=== PATIENT | female | born 1950 | race Caucasian/White ===

== ENCOUNTER → 2018-06-17 | Outpatient (CLI) | payer MEDICARE ==
[~2018-06-17] MED LIST: ACET1TAB12 PO; DOCU-275 PO; LEVO500T2 PO; TRAM50TA2 PO
[2018-06-17 10:11] LABS: ALBUMIN 3.1 g/dL (3.5-5.0); BILIRUBIN,TOTAL 0.8 mg/dL (0.2-1.0); CREATININE 0.6 mg/dL (0.5-1.5); POTASSIUM 5.6 mmol/L (3.5-5.1); TOTAL PROTEIN, SERUM 7.1 g/dL (6.0-8.3)
== END | disposition home or self-care (01) ==
LOC: RAH 09:06
PROVIDERS: ATTEND Student in an Organized Health Care Education/Training Program
DX: K76.9 Liver disease, unspecified (principal); R14.0 Abdominal distension (gaseous); R18.8 Other ascites; D18.00 Hemangioma unspecified site
CPT/HCPCS: 36415; 76705; 80053; 83880

== ENCOUNTER → 2018-06-23 | Outpatient (CLI) | payer MEDICARE | END | disposition home or self-care (01) | LOC: RAH 13:27 | PROVIDERS: ATTEND Family Medicine | DX: Z12.31 Encounter for screening mammogram for malignant neoplasm of breast (principal) | CPT/HCPCS: 77067 ==

== ENCOUNTER 2018-09-02 13:59 | Observation (INO) | payer MEDICARE ==
[~2018-09-02] VITALS: Ht 177.8 cm; Wt 72.8 kg
[2018-09-02 14:40] LABS: BASOPHILS % (AUTO) 0.5 % (0.0-5.0); HEMATOCRIT 40.2 % (36-48); LYMPHOCYTES % (AUTO) 28.7 % (21.0-51.0); MEAN CORPUSCULAR HEMOGLOBIN 28.8 pg (27.0-33.0); MEAN CORPUSCULAR HGB CONC 33.4 g/dL (32.0-36.0); MEAN CORPUSCULAR VOLUME 86.4 fL (79-99); MONOCYTES % (AUTO) 16.1 % (3.0-13.0); NEUTROPHILS % (AUTO) 54.7 % (40.0-77.0); NUCLEATED RED BLOOD CELLS 0.3 % (0.0-0.19); PLATELET COUNT (AUTO) 146 K/uL (130-400); RED BLOOD CELL COUNT(AUTO) 4.65 MIL/uL (4.00-5.50); RED CELL DISTRIBUTION WIDTH 16.8 % (11.0-15.5); WHITE BLOOD COUNT (AUTO) 3.2 K/uL (4.8-10.8)
[2018-09-02 14:56] LABS: CREATININE 0.6 mg/dL (0.5-1.5); POTASSIUM 3.8 mmol/L (3.5-5.1)
[2018-09-02 15:00] LABS: ALBUMIN 3.6 g/dL (3.5-5.0); BILIRUBIN,TOTAL 0.9 mg/dL (0.2-1.0); TOTAL PROTEIN, SERUM 7.5 g/dL (6.0-8.3)
[2018-09-02 16:32] LABS: INR 1.27 (0.85-1.15); PARTIAL THROMBOPLASTIN TIME 32.8 SEC (26.3-35.5); PROTHROMBIN TIME 13.3 SEC (9.6-11.6)
[2018-09-02] MEDS: SODIUM CHLORIDE 0.9% 1000ML 1,000 ML IV SCH (16:36)
[2018-09-02] MEDS ORDERED: HYDRALAZINE HCL 20 MG/ML VIAL IV PRN (16:45)
[2018-09-02] MEDS ORDERED: ONDANSETRON HCL 4 MG/2 ML VIAL IV PRN (16:45)
[2018-09-02] MEDS ORDERED: ACETAMINOPHEN 325 MG TAB PO PRN ×2 (16:45)
[2018-09-02] MEDS: LEVOFLOXACIN 500 MG/D5W 100 ML 100 ML IV SCH (18:00)
[2018-09-02] MEDS: IPRATROPIUM/ALBUTEROL SULFATE 3 ML SOLUTION IH SCH ×2 (18:34→23:30)
[2018-09-02] MEDS ORDERED: LEVOFLOXACIN 500 MG/D5W 100 ML 100 ML ONE (19:18)
[2018-09-02] MEDS ORDERED: SODIUM CHLORIDE 0.9% 1000ML 1,000 ML IV ONE (19:18)
[2018-09-02] MEDS ORDERED: OSELTAMIVIR PHOSPHATE 75 MG CAP ONE (19:19)
[2018-09-02] MEDS ORDERED: ONDANSETRON HCL 4 MG/2 ML VIAL ONE (20:27)
[2018-09-02] MEDS ORDERED: LORAZEPAM 2 MG/ML 1 ML VIAL IM PRN (20:45)
[2018-09-02] MEDS: OSELTAMIVIR PHOSPHATE 75 MG CAP PO SCH (21:00)
[2018-09-02 22:15] VITALS: BP 158/70
[2018-09-02 23:42] VITALS: BP_SYST 142; BP_SYST 158; BP_DIAS 70; BP_DIAS 78
[2018-09-03 04:00] VITALS: BP 149/72
[2018-09-03] MEDS: SODIUM CHLORIDE 0.9% 1000ML 1,000 ML IV SCH ×2 (05:40→23:23)
[2018-09-03 05:46] LABS: MEAN CORPUSCULAR HEMOGLOBIN 28.1 pg (27.0-33.0); MEAN CORPUSCULAR HGB CONC 32.6 g/dL (32.0-36.0); MEAN CORPUSCULAR VOLUME 86.3 fL (79-99); NUCLEATED RED BLOOD CELLS 0.2 % (0.0-0.19); PLATELET COUNT (AUTO) 118 K/uL (130-400); RED BLOOD CELL COUNT(AUTO) 4.52 MIL/uL (4.00-5.50); RED CELL DISTRIBUTION WIDTH 16.7 % (11.0-15.5); WHITE BLOOD COUNT (AUTO) 3.4 K/uL (4.8-10.8)
[2018-09-03 05:58] LABS: ALBUMIN 3.4 g/dL (3.5-5.0); BILIRUBIN,TOTAL 0.7 mg/dL (0.2-1.0); CREATININE 0.7 mg/dL (0.5-1.5); LYMPHOCYTES % (MANUAL) 48 % (22-44); MAGNESIUM 1.6 mg/dL (1.80-2.40); MAN.DIFF COMMENT-IMPRESSION MANUAL DIFFERENTIAL; MONOCYTES % (MANUAL) 4 % (2-9); PLATELET MORPHOLOGY COMMENT SLIGHTLY DECREASED; POTASSIUM 3.8 mmol/L (3.5-5.1); SEGMENTED NEUTROPHILS % 48 % (40-70); TOTAL PROTEIN, SERUM 7.1 g/dL (6.0-8.3)
[2018-09-03] MEDS: IPRATROPIUM/ALBUTEROL SULFATE 3 ML SOLUTION IH SCH ×2 (06:10→10:59)
[2018-09-03 08:00] VITALS: BP 136/59
[2018-09-03] MEDS ORDERED: PANTOPRAZOLE 40 MG/VIAL IVP SCH (09:00)
[2018-09-03] MEDS: PANTOPRAZOLE SODIUM 40 MG TABLET.DR PO SCH (10:08)
[2018-09-03] MEDS: THIAMINE HCL 100 MG/ML 2ML VIAL IVP SCH (10:08)
[2018-09-03] MEDS: OSELTAMIVIR PHOSPHATE 75 MG CAP PO SCH ×2 (10:08→20:34)
[2018-09-03] MEDS: AZITHROMYCIN 500MG+NS 250ML 250 ML IV SCH (11:26)
[2018-09-03 12:21] VITALS: BP 132/64
--- NOTE | 2018-09-03 14:13 | NUR ---
Status Informed primary team that patient does not meet IN criteria. States to leave OBS and plan to dc in AM if Hgb is stable. CD
[2018-09-03] MEDS ORDERED: IPRATROPIUM/ALBUTEROL SULFATE 3 ML SOLUTION IH SCH (15:00)
[2018-09-03 16:00] VITALS: BP 140/76
[2018-09-03] MEDS: LEVOFLOXACIN 500 MG/D5W 100 ML 100 ML IV SCH (17:28)
[2018-09-03 19:40] VITALS: BP 154/82
[2018-09-04 00:45] VITALS: BP 159/78
[2018-09-04 04:40] VITALS: BP 146/73
[2018-09-04 05:28] LABS: HEMATOCRIT 36.2 % (36-48); MEAN CORPUSCULAR HEMOGLOBIN 28.3 pg (27.0-33.0); MEAN CORPUSCULAR HGB CONC 32.8 g/dL (32.0-36.0); MEAN CORPUSCULAR VOLUME 86.2 fL (79-99); NUCLEATED RED BLOOD CELLS 0.1 % (0.0-0.19); PLATELET COUNT (AUTO) 112 K/uL (130-400); RED CELL DISTRIBUTION WIDTH 16.8 % (11.0-15.5); WHITE BLOOD COUNT (AUTO) 2.8 K/uL (4.8-10.8)
[2018-09-04 05:49] LABS: ALBUMIN 3.1 g/dL (3.5-5.0); BILIRUBIN,TOTAL 0.6 mg/dL (0.2-1.0); CREATININE 0.5 mg/dL (0.5-1.5); POTASSIUM 3.6 mmol/L (3.5-5.1); TOTAL PROTEIN, SERUM 6.6 g/dL (6.0-8.3)
[2018-09-04 06:49] LABS: BAND NEUTROPHILS % (MANUAL) 8 % (0-2); EOSINOPHILS % (MANUAL) 1 % (1-6); LYMPHOCYTES % (MANUAL) 55 % (22-44); MAN.DIFF COMMENT-IMPRESSION MANUAL DIFFERENTIAL; MONOCYTES % (MANUAL) 3 % (2-9); PLATELET MORPHOLOGY COMMENT ADEQUATE; SEGMENTED NEUTROPHILS % 33 % (40-70)
[2018-09-04 08:00] VITALS: BP 130/74
[2018-09-04] MEDS: OSELTAMIVIR PHOSPHATE 75 MG CAP PO SCH (09:07)
[2018-09-04] MEDS: THIAMINE HCL 100 MG/ML 2ML VIAL IVP SCH (09:07)
[2018-09-04] MEDS: AZITHROMYCIN 500MG+NS 250ML 250 ML IV SCH (09:07)
[2018-09-04] MEDS: PANTOPRAZOLE SODIUM 40 MG TABLET.DR PO SCH (09:07)
[2018-09-04] MEDS ORDERED: BENZ-39 PO (11:04)
[2018-09-04] MEDS ORDERED: OSEL75 PO (11:04)
[2018-09-04] MEDS ORDERED: LEVO250S3 PO (11:04)
[2018-09-04] MEDS ORDERED: AZIT500T4 PO (11:04)
[2018-09-04 12:00] VITALS: BP 132/67
--- NOTE | 2018-09-04 12:30 | NUR ---
KELIN NOTE [facility] to home[facility] Addendum: 09/04/18 at 1232 by HAILEE ALCANTAR CM Amended: Links added.
--- NOTE | 2018-09-04 15:00 | NUR ---
PATIENT DISCHARGED HOME; PRESCRIPTIONS GIVEN
== END 2018-09-04 15:30 | disposition home or self-care (01) ==
LOC: EDH 13:59 → EDHIP 16:36 → 3BH 20:40
PROVIDERS: ADMIT Internal Medicine; ATTEND Internal Medicine
DX: J10.1 Influenza due to other identified influenza virus with other respiratory manifestations (principal); K92.1 Melena; R11.2 Nausea with vomiting, unspecified; F10.10 Alcohol abuse, uncomplicated; Z80.7 Family history of other malignant neoplasms of lymphoid, hematopoietic and related tissues; Z83.3 Family history of diabetes mellitus; Z87.891 Personal history of nicotine dependence; Z90.49 Acquired absence of other specified parts of digestive tract; Z93.3 Colostomy status; Z79.899 Other long term (current) drug therapy
CPT/HCPCS: 36415 ×3; 71046; 74176; 80053 ×3; 82948; 83690; 83735; 85025 ×2; 85027; 85610; 85730; 86850; 86900; 86901; 87804 ×2; 94640 ×4; 94664; 96361 ×2; 96365; 96366; 96367; 96375; 96376; 99284; A4600; G0378 ×47; J0456 ×2; J1956 ×2; J2405; J3411 ×2; J7030; C9113

== ENCOUNTER → 2018-09-30 | Outpatient (CLI) | payer MEDICARE ==
[~2018-09-30] VITALS: Ht 177.8 cm; Wt 75.0 kg
[~2018-09-30] MED LIST changes: -ACET1TAB12 PO; +AZIT500T4 PO; +BENZ-39 PO; +CALC-24 PO; +CALCIUM+VIT D PO; +CEFAZOLIN SODIUM 1 GM VIAL IVP SCH; -DOCU-275 PO; +LEVO250S3 PO; -LEVO500T2 PO; +MULTIVITAMIN PO; +OSEL75 PO; +PREVAGEN PO; +SODIUM CHLORIDE 0.9% 1000ML 1,000 ML IV SCH; -TRAM50TA2 PO
[2018-09-30 10:22] LABS: BASOPHILS % (AUTO) 0.6 % (0.0-5.0); EOSINOPHILS % (AUTO) 1.9 % (0.0-8.0); HEMATOCRIT 27.8 % (36-48); LYMPHOCYTES % (AUTO) 34.5 % (21.0-51.0); MEAN CORPUSCULAR HEMOGLOBIN 27.8 pg (27.0-33.0); MEAN CORPUSCULAR HGB CONC 32.8 g/dL (32.0-36.0); MEAN CORPUSCULAR VOLUME 84.7 fL (79-99); MONOCYTES % (AUTO) 11.9 % (3.0-13.0); NEUTROPHILS % (AUTO) 51.1 % (40.0-77.0); PLATELET COUNT (AUTO) 178 K/uL (130-400); RED BLOOD CELL COUNT(AUTO) 3.28 MIL/uL (4.00-5.50); RED CELL DISTRIBUTION WIDTH 15.4 % (11.0-15.5)
[2018-09-30 10:36] LABS: CREATININE 0.4 mg/dL (0.5-1.5); POTASSIUM 4.3 mmol/L (3.5-5.1)
[2018-09-30 10:43] LABS: INR 1.1 (0.85-1.15); PROTHROMBIN TIME 11.5 SEC (9.6-11.6)
[2018-09-30 10:45] VITALS: BP 153/77
--- NOTE | 2018-09-30 11:43 | NUR ---
HX MRSA PT HAS HX MRSA, STATED SHE WAS DIAGNOSED LAST YEAR. NOTIFIED NOREEN MCCARTHY, STATED RECORDS STATES MRSA FROM ABDOMINAL ABSCESS. ALSO NOTIFIED GILBERTO MUNIZ OR VARNISH BLENDER. ALSO CALLED DR. VIEYRA'S OFFICE TO NOTIFY, SPOKE TO ALFREDO GARDNER, STATED SHE WILL LET DR. VIEYRA KNOW.
--- NOTE | 2018-10-01 14:43 | NUR ---
ORDER ABNORMAL LABS REPORTED AND FAXED TO OFFICE. ORDERS TO DRAW TYPE AND SCREEN UPON ARRIVAL DOS.
== END | disposition home or self-care (01) ==
LOC: DAH 10:00 → EDSTATUS 10-11 09:00
PROVIDERS: ATTEND Student in an Organized Health Care Education/Training Program
DX: Z01.818 Encounter for other preprocedural examination (principal); Z93.3 Colostomy status; Z79.899 Other long term (current) drug therapy; I10 Essential (primary) hypertension; K21.9 Gastro-esophageal reflux disease without esophagitis; Z90.49 Acquired absence of other specified parts of digestive tract; Z98.890 Other specified postprocedural states; Z87.891 Personal history of nicotine dependence
CPT/HCPCS: 36415; 80048; 85025; 85610; 85730

== ENCOUNTER 2018-10-06 09:48 | Day surgery (SDC) | payer MEDICARE ==
[~2018-10-06] VITALS: Ht 177.8 cm; Wt 74.4 kg
[~2018-10-06 09:48] MED LIST changes: -AZIT500T4 PO; -BENZ-39 PO; -CALC-24 PO; -CALCIUM+VIT D PO; -CEFAZOLIN SODIUM 1 GM VIAL IVP SCH; -LEVO250S3 PO; -OSEL75 PO; -PREVAGEN PO; -SODIUM CHLORIDE 0.9% 1000ML 1,000 ML IV SCH
[2018-10-06 10:14] VITALS: BP 136/65
[2018-10-06] MEDS ORDERED: SODIUM CHLORIDE 0.9% 1000ML 1,000 ML IV ONE (10:31)
[2018-10-06] MEDS ORDERED: CALC-24 PO (10:38)
[2018-10-06] MEDS ORDERED: PREVAGEN PO (10:38)
[2018-10-06] MEDS ORDERED: PROPOFOL 10 MG/ML 20ML VIAL IV ONE ×3 (11:03→12:34)
[2018-10-06] MEDS ORDERED: GLYCOPYRROLATE 0.2 MG/ML 5 ML VIAL ONE (11:04)
[2018-10-06] MEDS ORDERED: LIDOCAINE HCL-MPF 2% 5ML VIAL ONE (11:04)
== END 2018-10-06 13:20 | disposition home or self-care (01) ==
LOC: DAH 09:48 → ENDO 09:48
PROVIDERS: ATTEND Student in an Organized Health Care Education/Training Program
DX: Z12.11 Encounter for screening for malignant neoplasm of colon (principal); Z79.899 Other long term (current) drug therapy; Z98.890 Other specified postprocedural states; Z93.3 Colostomy status; K63.5 Polyp of colon; D12.2 Benign neoplasm of ascending colon; K57.30 Diverticulosis of large intestine without perforation or abscess without bleeding
CPT/HCPCS: 45380; 45381; 88305; A4606; J2704 ×3; J3490 ×2; J7030

== ENCOUNTER → 2018-10-25 | Outpatient (CLI) | payer MEDICARE ==
[~2018-10-25] MED LIST changes: +CALC-24 PO; +PREVAGEN PO
== END | disposition home or self-care (01) ==
LOC: RAH 10:10
PROVIDERS: ATTEND Family Medicine
DX: I10 Essential (primary) hypertension (principal); R18.8 Other ascites; R60.0 Localized edema
CPT/HCPCS: 93306; 93970

== ENCOUNTER 2018-11-15 14:52 | Inpatient (IN) | payer MEDICARE | END 2018-11-19 16:20 | disposition home or self-care (01) | LOC: EDH 14:52 → 4BH 11-17 19:01 → EDHIP 16:58 → 2BH 22:30 | DX: D62 Acute posthemorrhagic anemia (principal); K92.2 Gastrointestinal hemorrhage, unspecified; E87.1 Hypo-osmolality and hyponatremia; D50.0 Iron deficiency anemia secondary to blood loss (chronic); K43.5 Parastomal hernia without obstruction or gangrene ==

== ENCOUNTER → 2018-12-20 | Outpatient (CLI) | payer MEDICARE ==
[~2018-12-20] VITALS: Ht 177.8 cm; Wt 76.9 kg
[~2018-12-20] MED LIST changes: -CALC-24 PO; +CEFAZOLIN SODIUM 1 GM VIAL IVP SCH; +FERR-82 PO; +FERR324T4 PO; +FOLIC ACID; -MULTIVITAMIN PO; +PANT40TA PO; -PREVAGEN PO
[2018-12-20 09:00] VITALS: BP 167/73
[2018-12-20 09:02] LABS: BASOPHILS % (AUTO) 1.2 % (0.0-5.0); EOSINOPHILS % (AUTO) 2.5 % (0.0-8.0); HEMATOCRIT 33.2 % (36-48); LYMPHOCYTES % (AUTO) 39.2 % (21.0-51.0); MEAN CORPUSCULAR HEMOGLOBIN 24.6 pg (27.0-33.0); MEAN CORPUSCULAR HGB CONC 31.2 g/dL (32.0-36.0); MEAN CORPUSCULAR VOLUME 78.7 fL (79-99); MONOCYTES % (AUTO) 14.5 % (3.0-13.0); NEUTROPHILS % (AUTO) 42.6 % (40.0-77.0); PLATELET COUNT (AUTO) 180 K/uL (130-400); RED BLOOD CELL COUNT(AUTO) 4.22 MIL/uL (4.00-5.50); RED CELL DISTRIBUTION WIDTH 31.9 % (11.0-15.5); WHITE BLOOD COUNT (AUTO) 3.4 K/uL (4.8-10.8)
[2018-12-20 09:10] LABS: CREATININE 0.5 mg/dL (0.5-1.5); POTASSIUM 4.2 mmol/L (3.5-5.1)
== END | disposition home or self-care (01) ==
LOC: DAH 12-20 10:00 → EDSTATUS 08:00 → DAH 10:00
PROVIDERS: ATTEND Student in an Organized Health Care Education/Training Program
DX: Z01.818 Encounter for other preprocedural examination (principal); K57.20 Diverticulitis of large intestine with perforation and abscess without bleeding; K43.5 Parastomal hernia without obstruction or gangrene; Z93.3 Colostomy status
CPT/HCPCS: 36415; 80048; 85025

== ENCOUNTER 2019-02-04 09:20 | Day surgery (SDC) | payer MEDICARE ==
[~2019-02-04] VITALS: Ht 177.8 cm; Wt 75.7 kg
[~2019-02-04 09:20] MED LIST changes: -CEFAZOLIN SODIUM 1 GM VIAL IVP SCH; -FERR324T4 PO; -FOLIC ACID; -PANT40TA PO
[2019-02-04 13:00] VITALS: BP 154/75
[2019-02-04] MEDS ORDERED: FOLIC ACID (13:08)
[2019-02-04 14:26] VITALS: BP 138/70
[2019-02-04 14:31] VITALS: BP 143/70
[2019-02-04 14:36] VITALS: BP 153/76
[2019-02-04 14:41] VITALS: BP 155/72
[2019-02-04 14:46] VITALS: BP 156/75
== END 2019-02-04 15:05 | disposition home or self-care (01) ==
LOC: ENDO 09:20 → DAH 09:20 → ENDO 15:05
PROVIDERS: ATTEND Internal Medicine
DX: R93.5 Abnormal findings on diagnostic imaging of other abdominal regions, including retroperitoneum (principal); K86.9 Disease of pancreas, unspecified; K31.89 Other diseases of stomach and duodenum; Z98.890 Other specified postprocedural states; Z79.899 Other long term (current) drug therapy; K74.60 Unspecified cirrhosis of liver; K44.9 Diaphragmatic hernia without obstruction or gangrene
CPT/HCPCS: 43238; 88173; A4215 ×2; A4606; 43232

== ENCOUNTER 2019-07-15 07:50 | Inpatient (IN) | payer MEDICARE ==
[~2019-07-15] VITALS: Ht 177.8 cm; Wt 75.8 kg
[~2019-07-15 07:50] MED LIST changes: -FERR-82 PO; +FOLIC ACID
[2019-07-15] MEDS ORDERED: SODIUM CHLORIDE 0.9% 1000ML 1,000 ML IV ONE (08:09)
[2019-07-15] MEDS ORDERED: ACETAMINOPHEN 325 MG TAB ONE (08:09)
[2019-07-15 08:16] LABS: BASOPHILS % (AUTO) 0.3 % (0.0-5.0); EOSINOPHILS % (AUTO) 0.2 % (0.0-8.0); LYMPHOCYTES % (AUTO) 3.8 % (21.0-51.0); MEAN CORPUSCULAR HEMOGLOBIN 19.2 pg (27.0-33.0); MEAN CORPUSCULAR HGB CONC 30.1 g/dL (32.0-36.0); MEAN CORPUSCULAR VOLUME 63.7 fL (79-99); MONOCYTES % (AUTO) 4.7 % (3.0-13.0); NUCLEATED RED BLOOD CELLS 0.1 % (0.0-0.19); PLATELET COUNT (AUTO) 211 K/uL (130-400); RED BLOOD CELL COUNT(AUTO) 3.92 MIL/uL (4.00-5.50); RED CELL DISTRIBUTION WIDTH 20.2 % (11.0-15.5); WHITE BLOOD COUNT (AUTO) 14.8 K/uL (4.8-10.8)
[2019-07-15 08:22] LABS: CREATININE 0.6 mg/dL (0.5-1.5); POTASSIUM 3.6 mmol/L (3.5-5.1)
[2019-07-15 08:26] LABS: ALBUMIN 3.2 g/dL (3.5-5.0); BILIRUBIN,TOTAL 1.4 mg/dL (0.2-1.0); TOTAL PROTEIN, SERUM 6.9 g/dL (6.0-8.3)
[2019-07-15 08:29] LABS: APPEARANCE,URINE Clear (CLEAR); BILIRUBIN,URINE Negative (NEGATIVE); COLOR,URINE Dark Yellow (YELLOW); GLUCOSE, URINE (UA) Negative (NEGATIVE); INR 1.29 (0.85-1.15); KETONES,URINE 40 mg/dL (NEGATIVE); LEUKOCYTE ESTERASE ,URINE Trace (NEGATIVE); NITRATE,URINE Positive (NEGATIVE); OCCULT BLOOD,URINE Negative (NEGATIVE); PARTIAL THROMBOPLASTIN TIME 26.6 SEC (26.3-35.5); PH,URINE 6.5 (5.0-8.0); PROTEIN,URINE Negative (NEGATIVE); PROTHROMBIN TIME 13.4 SEC (9.6-11.6)
[2019-07-15 08:46] LABS: BACTERIA,URINE Few /HPF (None Seen); MUCUS,URINE Rare LPF (None Seen); RBC,URINE 0-1 /HPF (0-1); SQUAMOUS EPITHELIAL CELL,UR Rare /HPF (0-2)
[2019-07-15 08:49] LABS: CREATINE KINASE, TOTAL 64 U/L (21-232); MYOGLOBIN 43 ng/mL (10-92); TROPONIN I < 0.04 ng/mL (0.00-0.06)
[2019-07-15] MEDS ORDERED: CEFTRIAXONE SODIUM 2 GM VIAL ONE (08:55)
[2019-07-15] MEDS ORDERED: ONDANSETRON HCL 4 MG/2 ML VIAL ONE (08:55)
[2019-07-15] MEDS ORDERED: SODIUM CHLORIDE 0.9% 100 ML IV ONE (08:58)
[2019-07-15] MEDS ORDERED: MORPHINE SULFATE 2 MG/ML 1ML SYG IV PRN (11:15)
[2019-07-15] MEDS ORDERED: ONDANSETRON HCL 4 MG/2 ML VIAL IV PRN (11:15)
[2019-07-15] MEDS ORDERED: ACETAMINOPHEN 325 MG TAB PO PRN ×2 (11:15)
[2019-07-15] MEDS: CEFTRIAXONE SODIUM 1 GM IV SCH (11:15)
[2019-07-15 14:36] VITALS: BP 150/64
[2019-07-15 16:00] VITALS: BP 135/58
[2019-07-15] MEDS: SODIUM CHLORIDE 0.9% 1000ML 1,000 ML IV SCH (16:55)
[2019-07-15 19:30] VITALS: BP 136/67
[2019-07-15] MEDS ORDERED: IRON-23 PO (19:32)
[2019-07-15] MEDS ORDERED: THIA100T75 PO (19:32)
[2019-07-15] MEDS ORDERED: NITR100C PO (19:32)
[2019-07-15] MEDS ORDERED: PUMP300C PO (19:32)
[2019-07-15] MEDS ORDERED: FOLI0.8T PO (19:32)
[2019-07-15] MEDS ORDERED: POTASSIUM CHLORIDE 20MEQ/100ML 100 ML IV PRN (19:45)
[2019-07-15] MEDS ORDERED: LIDOCAINE HCL-MPF 1% 2ML VIAL IV PRN (19:45)
[2019-07-15] MEDS ORDERED: POTASSIUM CHLORIDE 10% ELIXIR 20 MEQ/15 ML UDCUP PO PRN (19:45)
[2019-07-15] MEDS ORDERED: POTASSIUM CHLORIDE 20 MEQ ERTAB PO ONE (19:54)
[2019-07-15] MEDS: FAMOTIDINE 20MG TAB 20 MG TAB PO SCH (20:17)
--- NOTE | 2019-07-15 23:08 | NUR ---
colostomy colostomy stoma looked dry and bloody. irrigated it with sterile water, cleaned it, and changed the bag. Stoma now pink, smooth, with no drainage.
[2019-07-15 23:30] VITALS: BP 145/74
[2019-07-16] VITALS (7 sets, daily range): BP systolic 127–154; BP diastolic 63–77
[2019-07-16 04:49] LABS: CREATININE 0.5 mg/dL (0.5-1.5); POTASSIUM 3.8 mmol/L (3.5-5.1)
[2019-07-16 04:55] LABS: BASOPHILS % (AUTO) 0.3 % (0.0-5.0); EOSINOPHILS % (AUTO) 3.7 % (0.0-8.0); HEMATOCRIT 23.3 % (36-48); LYMPHOCYTES % (AUTO) 19.5 % (21.0-51.0); MEAN CORPUSCULAR HEMOGLOBIN 19.5 pg (27.0-33.0); MEAN CORPUSCULAR HGB CONC 29.9 g/dL (32.0-36.0); MONOCYTES % (AUTO) 8.3 % (3.0-13.0); NEUTROPHILS % (AUTO) 68.2 % (40.0-77.0); PLATELET COUNT (AUTO) 174 K/uL (130-400); RED BLOOD CELL COUNT(AUTO) 3.58 MIL/uL (4.00-5.50); WHITE BLOOD COUNT (AUTO) 6.4 K/uL (4.8-10.8)
--- NOTE | 2019-07-16 06:32 | NUR ---
spoke with Hospitalist Amada Liz about patient's hemoglobin of 7.0. she ordered type and screen and hemoglobin and hematocrit at 08:00 and report results to her or doctor.
[2019-07-16] MEDS: SODIUM CHLORIDE 0.9% 1000ML 1,000 ML IV SCH ×3 (06:48→16:53)
[2019-07-16 08:13] LABS: HEMATOCRIT 24.6 % (36-48)
[2019-07-16] MEDS: ENOXAPARIN SODIUM 30 MG/0.3 ML SQ SCH (08:37)
[2019-07-16] MEDS: CEFTRIAXONE SODIUM 1 GM IV SCH (08:37)
[2019-07-16] MEDS: FAMOTIDINE 20MG TAB 20 MG TAB PO SCH ×2 (08:38→20:30)
[2019-07-16 08:39] LABS: ALBUMIN 2.9 g/dL (3.5-5.0); BILIRUBIN,DIRECT 0.4 mg/dL (0.0-0.3); BILIRUBIN,TOTAL 0.9 mg/dL (0.2-1.0); TOTAL PROTEIN, SERUM 6.6 g/dL (6.0-8.3)
[2019-07-16 09:08] LABS: % IRON SATURATION 2.9 % (22-44)
--- NOTE | 2019-07-16 17:21 | NUR ---
cm note met with patient and states resides at home with spouse independent with adls and self care. pt drives. dc plan is back to home. no dc needs. Addendum: 07/16/19 at 1723 by NATALEE ROBERTSON CM Amended: Links added.
--- NOTE | 2019-07-17 02:56 | NUR ---
NURSING NOTE report given to pccu nurse
[2019-07-17] MEDS: SODIUM CHLORIDE 0.9% 1000ML 1,000 ML IV SCH ×3 (03:13→22:12)
[2019-07-17 03:54] VITALS: BP 149/70
[2019-07-17 05:55] LABS: BASOPHILS % (AUTO) 0.6 % (0.0-5.0); EOSINOPHILS % (AUTO) 4.3 % (0.0-8.0); HEMATOCRIT 25.8 % (36-48); MEAN CORPUSCULAR HEMOGLOBIN 19.3 pg (27.0-33.0); MEAN CORPUSCULAR VOLUME 64.5 fL (79-99); MONOCYTES % (AUTO) 11.7 % (3.0-13.0); NEUTROPHILS % (AUTO) 60.4 % (40.0-77.0); PLATELET COUNT (AUTO) 174 K/uL (130-400); RED BLOOD CELL COUNT(AUTO) 4.01 MIL/uL (4.00-5.50); RED CELL DISTRIBUTION WIDTH 20.4 % (11.0-15.5); WHITE BLOOD COUNT (AUTO) 5.3 K/uL (4.8-10.8)
[2019-07-17 06:18] LABS: BILIRUBIN,TOTAL 0.9 mg/dL (0.2-1.0); CREATININE 0.6 mg/dL (0.5-1.5); POTASSIUM 3.7 mmol/L (3.5-5.1); TOTAL PROTEIN, SERUM 6.5 g/dL (6.0-8.3)
[2019-07-17 07:30] VITALS: BP 143/71
[2019-07-17 11:00] VITALS: BP 142/76
[2019-07-17] MEDS: ENOXAPARIN SODIUM 30 MG/0.3 ML SQ SCH (11:39)
[2019-07-17] MEDS: CEFTRIAXONE SODIUM 1 GM IV SCH ×2 (11:39→22:11)
[2019-07-17] MEDS: FAMOTIDINE 20MG TAB 20 MG TAB PO SCH ×2 (11:40→22:12)
[2019-07-17] MEDS ORDERED: DOCUSATE SODIUM 100 MG CAP PO SCH (14:00)
[2019-07-17 16:00] VITALS: BP 161/83
[2019-07-17] MEDS ORDERED: DOCU-116 PO (17:21)
[2019-07-17] MEDS ORDERED: PHEN95TA44 PO (17:21)
[2019-07-17 21:45] VITALS: BP 153/80
--- NOTE | 2019-07-17 22:07 | NUR ---
ASSESSMENT PT RESTING QUIETLY IN BED. IV FLUIDS INFUSING WITHOUT DIFFICULTY. PT AAOX4, PLEASANT, COOPERATIVE. COLOSTOMY ACTIVE. BRP TELE PACK IN PLACE. HR 80. CALLBELL REVIEWED AND WITHIN REACH. TELE PACK SECURED. ASSESSMENT COMPLETED, SEE FLOW SHEET.
[2019-07-17] MEDS: FERROUS SULFATE 325 MG TABLET.DR PO SCH (22:11)
[2019-07-18 00:22] VITALS: BP 144/73
--- NOTE | 2019-07-18 01:30 | NUR ---
HR HEART RATE 71 ON TELE PACK
[2019-07-18 04:43] VITALS: BP 145/77
[2019-07-18 04:47] LABS: BASOPHILS % (AUTO) 0.6 % (0.0-5.0); EOSINOPHILS % (AUTO) 4.2 % (0.0-8.0); HEMATOCRIT 23.9 % (36-48); MEAN CORPUSCULAR VOLUME 63.3 fL (79-99); MONOCYTES % (AUTO) 12.1 % (3.0-13.0); NEUTROPHILS % (AUTO) 57.1 % (40.0-77.0); PLATELET COUNT (AUTO) 182 K/uL (130-400); RED BLOOD CELL COUNT(AUTO) 3.77 MIL/uL (4.00-5.50); RED CELL DISTRIBUTION WIDTH 20.4 % (11.0-15.5); WHITE BLOOD COUNT (AUTO) 4.8 K/uL (4.8-10.8)
[2019-07-18] MEDS: SODIUM CHLORIDE 0.9% 1000ML 1,000 ML IV SCH (05:09)
[2019-07-18 05:11] LABS: ALBUMIN 2.7 g/dL (3.5-5.0); BILIRUBIN,TOTAL 0.6 mg/dL (0.2-1.0); CREATININE 0.5 mg/dL (0.5-1.5); POTASSIUM 3.3 mmol/L (3.5-5.1); TOTAL PROTEIN, SERUM 6.1 g/dL (6.0-8.3)
[2019-07-18 08:00] VITALS: BP 155/69
[2019-07-18] MEDS: FAMOTIDINE 20MG TAB 20 MG TAB PO SCH (09:54)
[2019-07-18] MEDS: ENOXAPARIN SODIUM 30 MG/0.3 ML SQ SCH (09:54)
[2019-07-18] MEDS: FERROUS SULFATE 325 MG TABLET.DR PO SCH (09:54)
[2019-07-18] MEDS: CEFTRIAXONE SODIUM 1 GM IV SCH (09:55)
[2019-07-18 12:00] VITALS: BP 153/81
[2019-07-18] MEDS ORDERED: FERR325T22 PO (12:00)
[2019-07-18] MEDS ORDERED: LEVO750T46 PO (12:00)
== END 2019-07-18 14:30 | disposition home or self-care (01) | DRG 872 ==
LOC: EDH 07:50 → EDHIP 11:13 → 3BH 14:12
PROVIDERS: ADMIT Internal Medicine; ATTEND Internal Medicine
DX: A41.9 Sepsis, unspecified organism (principal); N39.0 Urinary tract infection, site not specified; E44.1 Mild protein-calorie malnutrition; D50.9 Iron deficiency anemia, unspecified; I10 Essential (primary) hypertension; B96.4 Proteus (mirabilis) (morganii) as the cause of diseases classified elsewhere; Z93.3 Colostomy status; Z68.24 Body mass index [BMI] 24.0-24.9, adult; Z80.7 Family history of other malignant neoplasms of lymphoid, hematopoietic and related tissues; Z83.3 Family history of diabetes mellitus; Z86.14 Personal history of Methicillin resistant Staphylococcus aureus infection
CPT/HCPCS: 36415; 71045; 74176; 80048; 80053; 80076; 81001; 82550; 82728; 83540; 83550; 83605; 83874; 84145; 84466; 84484; 85014; 85018; 85025; 85610; 85730; 86850; 86900; 86901; 87040; 87077; 87088; 87186; 87804; 93005; G0378; J0696; J1650; J2405; J7030

== ENCOUNTER 2019-07-30 18:24 | Emergency (ER) | payer MEDICARE ==
[~2019-07-30 18:24] MED LIST changes: +DOCU-116 PO; +FERR325T22 PO; +FOLI0.8T PO; +LEVO750T46 PO; +PUMP300C PO; +THIA100T75 PO
[2019-07-30 19:08] LABS: BASOPHILS % (AUTO) 0.6 % (0.0-5.0); EOSINOPHILS % (AUTO) 0.4 % (0.0-8.0); HEMATOCRIT 32.2 % (36-48); LYMPHOCYTES % (AUTO) 6.7 % (21.0-51.0); MEAN CORPUSCULAR HEMOGLOBIN 21.6 pg (27.0-33.0); MEAN CORPUSCULAR VOLUME 69.5 fL (79-99); MONOCYTES % (AUTO) 4.1 % (3.0-13.0); NEUTROPHILS % (AUTO) 88.2 % (40.0-77.0); NUCLEATED RED BLOOD CELLS 0.2 % (0.0-0.19); PLATELET COUNT (AUTO) 202 K/uL (130-400); RED BLOOD CELL COUNT(AUTO) 4.63 MIL/uL (4.00-5.50); WHITE BLOOD COUNT (AUTO) 10.7 K/uL (4.8-10.8)
[2019-07-30 19:09] LABS: APPEARANCE,URINE Clear (CLEAR); BILIRUBIN,URINE Negative (NEGATIVE); COLOR,URINE Yellow (YELLOW); GLUCOSE, URINE (UA) Negative (NEGATIVE); KETONES,URINE Negative (NEGATIVE); LEUKOCYTE ESTERASE ,URINE Trace (NEGATIVE); NITRATE,URINE Negative (NEGATIVE); OCCULT BLOOD,URINE Negative (NEGATIVE); PROTEIN,URINE Negative (NEGATIVE)
[2019-07-30 19:21] LABS: BACTERIA,URINE Few /HPF (None Seen); MUCUS,URINE Few LPF (None Seen); SQUAMOUS EPITHELIAL CELL,UR 0-2 /HPF (0-2)
[2019-07-30 19:26] LABS: CARBON DIOXIDE 21 mmol/L (21-32); CHLORIDE 104 mmol/L (101-111); CREATININE 0.5 mg/dL (0.5-1.5); GLOMERULAR FILTR. RATE CALC 130 mL/min (>60); GLUCOSE,RANDOM 114 mg/dL (70-105); POTASSIUM 4.1 mmol/L (3.5-5.1); SODIUM SERUM 138 mmol/L (136-145); UREA NITROGEN, BLOOD 4 mg/dL (7-18)
[2019-07-30 19:33] LABS: INR 1.25 (0.85-1.15); PARTIAL THROMBOPLASTIN TIME 28.2 SEC (26.3-35.5)
[2019-07-30 19:36] LABS: ALANINE AMINOTRANSFERASE 39 U/L (12-78); ALBUMIN 3.4 g/dL (3.5-5.0); ASPARTATE AMINOTRANSFERASE 101 U/L (10-37); BILIRUBIN,TOTAL 0.9 mg/dL (0.2-1.0); CREATINE KINASE, TOTAL 72 U/L (21-232); MYOGLOBIN 32 ng/mL (10-92); TOTAL PROTEIN, SERUM 7.2 g/dL (6.0-8.3); TROPONIN I < 0.04 ng/mL (0.00-0.06)
[2019-07-30] MEDS ORDERED: CEFTRIAXONE SODIUM 1 GM ONE (20:05)
[2019-07-30] MEDS ORDERED: SODIUM CHLORIDE 0.9% 50 ML IV ONE (20:06)
== END 2019-07-30 22:28 | disposition home or self-care (01) ==
LOC: EDH 18:24
DX: N30.00 Acute cystitis without hematuria (principal); R79.1 Abnormal coagulation profile; Z93.3 Colostomy status
CPT/HCPCS: 36415; 71045; 80053; 81001; 82550; 83605; 83874; 84145; 84484; 85025; 85610; 85730; 87040 ×2; 87088; 93005; 96374; 99285; J0696

== ENCOUNTER 2020-02-09 17:53 | Emergency (ER) | payer MEDICARE ==
[2020-02-09] MEDS ORDERED: ACETAMINOPHEN 325 MG TAB ONE (19:27)
[2020-02-09] MEDS ORDERED: CEFTRIAXONE SODIUM 1 GM ONE (20:16)
== END 2020-02-09 21:30 | disposition home or self-care (01) ==
LOC: EDH 17:53
DX: N39.0 Urinary tract infection, site not specified (principal); R50.9 Fever, unspecified; Z20.828 Contact with and (suspected) exposure to other viral communicable diseases
CPT/HCPCS: 36415; 71045; 80053; 81001; 83605; 84484; 85025; 87040 ×2; 87077; 87088; 87186; 87635; 87804 ×2; 93005; 96374; 99285; J0696

== ENCOUNTER → 2020-02-10 | Outpatient (CLI) | payer MEDICARE | END | disposition home or self-care (01) | LOC: RAH 09:50 | PROVIDERS: ATTEND Family Medicine | DX: K74.60 Unspecified cirrhosis of liver (principal); R16.0 Hepatomegaly, not elsewhere classified | CPT/HCPCS: 76705 ==

== ENCOUNTER 2020-10-03 16:58 | Inpatient (IN) | payer MEDICARE ==
[~2020-10-03] VITALS: Ht 177.8 cm; Wt 77.6 kg
[~2020-10-03 16:58] MED LIST changes: -FOLI0.8T PO; +FOLI0.8T3 PO
[2020-10-03] MEDS ORDERED: PANTOPRAZOLE 40 MG/VIAL ONE (18:09)
[2020-10-03] MEDS ORDERED: CEFTRIAXONE 1G VIAL ONE (18:10)
[2020-10-03 18:13] LABS: BASOPHILS % (AUTO) 0.6 % (0.0-5.0); EOSINOPHILS % (AUTO) 2.1 % (0.0-8.0); HEMATOCRIT 30.3 % (36-48); LYMPHOCYTES % (AUTO) 11.8 % (21.0-51.0); MEAN CORPUSCULAR HEMOGLOBIN 25.4 pg (27.0-33.0); MEAN CORPUSCULAR HGB CONC 32.3 g/dL (32.0-36.0); MEAN CORPUSCULAR VOLUME 78.5 fL (79-99); MONOCYTES % (AUTO) 9.5 % (3.0-13.0); PLATELET COUNT (AUTO) 69 K/uL (130-400); RED BLOOD CELL COUNT(AUTO) 3.86 MIL/uL (4.00-5.50); RED CELL DISTRIBUTION WIDTH 23.5 % (11.0-15.5); WHITE BLOOD COUNT (AUTO) 5.2 K/uL (4.8-10.8)
[2020-10-03 18:26] LABS: INR 1.59 (0.85-1.15); PROTHROMBIN TIME 16.6 SEC (9.6-11.6)
[2020-10-03 18:27] LABS: PARTIAL THROMBOPLASTIN TIME 31.5 SEC (26.3-35.5)
[2020-10-03 18:34] LABS: CREATININE 0.6 mg/dL (0.5-1.5); POTASSIUM 3.9 mmol/L (3.5-5.1)
[2020-10-03 18:39] LABS: ALBUMIN 2.9 g/dL (3.5-5.0); BILIRUBIN,TOTAL 2.9 mg/dL (0.2-1.0); TOTAL PROTEIN, SERUM 6.7 g/dL (6.0-8.3)
[2020-10-03 19:07] LABS: APPEARANCE,URINE Clear (CLEAR); BILIRUBIN,URINE Small (NEGATIVE); COLOR,URINE Dark Yellow (YELLOW); GLUCOSE, URINE (UA) Negative (NEGATIVE); KETONES,URINE 15 mg/dL (NEGATIVE); LEUKOCYTE ESTERASE ,URINE Trace (NEGATIVE); NITRATE,URINE Negative (NEGATIVE); OCCULT BLOOD,URINE Negative (NEGATIVE); PROTEIN,URINE Negative (NEGATIVE)
[2020-10-03] MEDS ORDERED: OCTREOTIDE ACETATE 1,250 MCG in 0.9% NACL 250ML 250 ML IV SCH (19:15)
[2020-10-03] MEDS ORDERED: PHARMACY COMMUNICATION MISC PRN (19:30)
[2020-10-03] MEDS ORDERED: CHLORDIAZEPOXIDE HCL 25 MG CAP PO PRN ×2 (19:30)
[2020-10-03] MEDS ORDERED: ACETAMINOPHEN 325 MG TAB PO PRN ×2 (19:30)
[2020-10-03] MEDS ORDERED: LACTULOSE 20 GM/30 ML UDCUP PO PRN (19:30)
[2020-10-03] MEDS ORDERED: LORAZEPAM 2 MG/ML 1 ML VIAL IVP PRN ×2 (19:30)
[2020-10-03] MEDS ORDERED: ONDANSETRON 4MG INJ IV PRN ×2 (19:30)
[2020-10-03] MEDS ORDERED: DiphenhydrAMINE HCL 50 MG/ML VIAL IV PRN (19:30)
[2020-10-03] MEDS: THIAMINE HCL 100 MG, FOLIC ACID 1 MG, M.V.I. IV [ADULT] 10 ML in 0.9%NACL 1000ML 1,000 ML IV SCH (19:30)
[2020-10-03] MEDS ORDERED: NITROGLYCERIN 0.4 MG SL TAB SL PRN (19:30)
[2020-10-03] MEDS ORDERED: DIPHENHYDRAMINE HCL 25 MG CAPSULE PO PRN (19:30)
[2020-10-03] MEDS ORDERED: PROMETHAZINE HCL 25 MG TABLET PO PRN (19:30)
[2020-10-03] MEDS ORDERED: MAG/ALUM/SIMETH 30 ML UDCUP PO PRN (19:30)
[2020-10-03] MEDS ORDERED: LORAZEPAM 2 MG/ML 1 ML VIAL ONE (19:33)
[2020-10-03] MEDS ORDERED: 0.9% NACL 250ML 250 ML IV ONE (19:36)
[2020-10-03 19:40] LABS: BACTERIA,URINE Rare /HPF (None Seen); MUCUS,URINE Few LPF (None Seen); RBC,URINE 0-1 /HPF (0-1); SQUAMOUS EPITHELIAL CELL,UR 0-2 /HPF (0-2)
[2020-10-03 19:56] LABS: AMPHET/METH SCREEN,URINE NEGATIVE (NEGATIVE); BARBITURATE SCREEN, URINE NEGATIVE (NEGATIVE); BENZODIAZEPINES SCREEN,URINE NEGATIVE (NEGATIVE); CANNABINOID SCREEN,URINE POSITIVE (NEGATIVE); COCAINE SCREEN,URINE NEGATIVE (NEGATIVE); OPIATE SCREEN,URINE NEGATIVE (NEGATIVE); PHENCYCLIDINE SCREEN,URINE NEGATIVE (NEGATIVE)
[2020-10-03 20:15] LABS: MAGNESIUM 1.5 mg/dL (1.80-2.40); PHOSPHORUS 2.9 mg/dL (2.5-4.9)
[2020-10-03 21:25] LABS: HEMATOCRIT 26.9 % (36-48)
[2020-10-03 23:00] VITALS: BP 140/72
[2020-10-03] MEDS ORDERED: PANTOPRAZOLE 40MG INJ 80 MG in 0.9%NACL 100ML 100 ML IVP SCH (23:00)
[2020-10-04] VITALS (13 sets, daily range): BP systolic 124–167; BP diastolic 63–91
[2020-10-04] MEDS ORDERED: PANTOPRAZOLE 40 MG/VIAL ONE (00:52)
[2020-10-04] MEDS ORDERED: 0.9%NACL 100ML 100 ML IV ONE (01:19)
[2020-10-04 02:53] LABS: HEMATOCRIT 30.2 % (36-48)
[2020-10-04 03:11] LABS: ALBUMIN 2.8 g/dL (3.5-5.0); BILIRUBIN,TOTAL 3.1 mg/dL (0.2-1.0); CREATININE 0.7 mg/dL (0.5-1.5); POTASSIUM 3.5 mmol/L (3.5-5.1); TOTAL PROTEIN, SERUM 6.3 g/dL (6.0-8.3)
[2020-10-04 06:03] LABS: BASOPHILS % (AUTO) 0.5 % (0.0-5.0); EOSINOPHILS % (AUTO) 0.3 % (0.0-8.0); LYMPHOCYTES % (AUTO) 13.9 % (21.0-51.0); MEAN CORPUSCULAR HEMOGLOBIN 26.3 pg (27.0-33.0); MEAN CORPUSCULAR HGB CONC 33.3 g/dL (32.0-36.0); MEAN CORPUSCULAR VOLUME 78.9 fL (79-99); MONOCYTES % (AUTO) 12.9 % (3.0-13.0); NEUTROPHILS % (AUTO) 72.1 % (40.0-77.0); PLATELET COUNT (AUTO) 64 K/uL (130-400); RED CELL DISTRIBUTION WIDTH 22.5 % (11.0-15.5)
[2020-10-04] MEDS ORDERED: PROPOFOL 10 MG/ML 20ML VIAL IV ONE ×2 (08:44)
[2020-10-04] MEDS: MULTIVITAMIN TABLET PO SCH (09:00)
[2020-10-04] MEDS ORDERED: PANTOPRAZOLE 40MG INJ 80 MG in 0.9%NACL 100ML 100 ML IV SCH (09:00)
[2020-10-04] MEDS: THIAMINE HCL 100 MG/ML 2ML VIAL IV SCH (09:48)
[2020-10-04] MEDS: FOLIC ACID 1 MG TABLET PO SCH (09:49)
[2020-10-04] MEDS ORDERED: LIDOCAINE HCL-MPF 1% 2ML VIAL IV PRN (11:30)
[2020-10-04] MEDS ORDERED: MAGNESIUM 2GM PREMIX 50ML 50 ML IV PRN (11:30)
[2020-10-04] MEDS ORDERED: POTASSIUM CHLORIDE 20MEQ/100ML 100 ML IV PRN (11:30)
[2020-10-04] MEDS ORDERED: KCL 20 MEQ ERTAB PO PRN (11:30)
[2020-10-04] MEDS ORDERED: CEFTRIAXONE 1G VIAL IVP SCH (14:00)
[2020-10-04] MEDS: POTASSIUM CHLORIDE 10% ELIXIR 20 MEQ/15 ML UDCUP PO PRN ×2 (14:23→16:48)
[2020-10-04] MEDS ORDERED: LACTULOSE 20 GM/30 ML UDCUP PO SCH (16:00)
[2020-10-04] MEDS: ZOSYN 3.375GM+NS 50ML 50 ML IV SCH ×2 (16:45→23:18)
[2020-10-04 16:47] LABS: HEMATOCRIT 31.5 % (36-48)
[2020-10-04] MEDS: THIAMINE HCL 100 MG, FOLIC ACID 1 MG, M.V.I. IV [ADULT] 10 ML in 0.9%NACL 1000ML 1,000 ML IV SCH (19:30)
[2020-10-04] MEDS: HYDROMORPHONE 2 MG VIAL (2MG/ML) IVP PRN ×2 (22:29→23:48)
[2020-10-05] VITALS (7 sets, daily range): BP systolic 120–168; BP diastolic 61–84
[2020-10-05] MEDS: HYDROMORPHONE 2 MG VIAL (2MG/ML) IVP PRN ×6 (00:56→06:00)
[2020-10-05 05:09] LABS: BASOPHILS % (AUTO) 0.9 % (0.0-5.0); EOSINOPHILS % (AUTO) 3.1 % (0.0-8.0); HEMATOCRIT 31.4 % (36-48); LYMPHOCYTES % (AUTO) 15.5 % (21.0-51.0); MEAN CORPUSCULAR HEMOGLOBIN 26.2 pg (27.0-33.0); MEAN CORPUSCULAR HGB CONC 32.5 g/dL (32.0-36.0); MEAN CORPUSCULAR VOLUME 80.5 fL (79-99); MONOCYTES % (AUTO) 14.1 % (3.0-13.0); NEUTROPHILS % (AUTO) 65.9 % (40.0-77.0); PLATELET COUNT (AUTO) 49 K/uL (130-400); RED CELL DISTRIBUTION WIDTH 22.9 % (11.0-15.5); WHITE BLOOD COUNT (AUTO) 5.7 K/uL (4.8-10.8)
[2020-10-05 05:38] LABS: ALBUMIN 2.8 g/dL (3.5-5.0); BILIRUBIN,TOTAL 3.7 mg/dL (0.2-1.0); CREATININE 0.7 mg/dL (0.5-1.5); POTASSIUM 3.8 mmol/L (3.5-5.1); TOTAL PROTEIN, SERUM 6.3 g/dL (6.0-8.3)
[2020-10-05] MEDS: ZOSYN 3.375GM+NS 50ML 50 ML IV SCH (06:35)
[2020-10-05] MEDS: PANTOPRAZOLE 40 MG TAB DR PO SCH (09:39)
[2020-10-05] MEDS: MULTIVITAMIN TABLET PO SCH (09:39)
[2020-10-05] MEDS: THIAMINE HCL 100 MG/ML 2ML VIAL IV SCH (09:39)
[2020-10-05] MEDS: FOLIC ACID 1 MG TABLET PO SCH (09:39)
[2020-10-05] MEDS: CEFTRIAXONE 1G VIAL IVP SCH (16:46)
[2020-10-05 16:57] LABS: HEMATOCRIT 31.8 % (36-48)
[2020-10-05] MEDS: THIAMINE HCL 100 MG, FOLIC ACID 1 MG, M.V.I. IV [ADULT] 10 ML in 0.9%NACL 1000ML 1,000 ML IV SCH (23:17)
[2020-10-06 04:00] VITALS: BP 135/55
[2020-10-06 06:27] LABS: BASOPHILS % (AUTO) 0.8 % (0.0-5.0); EOSINOPHILS % (AUTO) 3.7 % (0.0-8.0); HEMATOCRIT 30.4 % (36-48); LYMPHOCYTES % (AUTO) 21.3 % (21.0-51.0); MEAN CORPUSCULAR HEMOGLOBIN 26.1 pg (27.0-33.0); MEAN CORPUSCULAR HGB CONC 32.6 g/dL (32.0-36.0); MEAN CORPUSCULAR VOLUME 80.2 fL (79-99); MONOCYTES % (AUTO) 10.7 % (3.0-13.0); NEUTROPHILS % (AUTO) 63.2 % (40.0-77.0); PLATELET COUNT (AUTO) 62 K/uL (130-400); RED BLOOD CELL COUNT(AUTO) 3.79 MIL/uL (4.00-5.50); WHITE BLOOD COUNT (AUTO) 6.3 K/uL (4.8-10.8)
[2020-10-06 06:42] LABS: ALBUMIN 2.6 g/dL (3.5-5.0); BILIRUBIN,TOTAL 3.4 mg/dL (0.2-1.0); CREATININE 0.5 mg/dL (0.5-1.5); POTASSIUM 3.6 mmol/L (3.5-5.1); TOTAL PROTEIN, SERUM 5.8 g/dL (6.0-8.3)
[2020-10-06] MEDS: FOLIC ACID 1 MG TABLET PO SCH (08:36)
[2020-10-06] MEDS: PANTOPRAZOLE 40 MG TAB DR PO SCH (08:36)
[2020-10-06] MEDS: MULTIVITAMIN TABLET PO SCH (08:36)
[2020-10-06] MEDS: THIAMINE HCL 100 MG/ML 2ML VIAL IV SCH (08:36)
[2020-10-06 08:55] VITALS: BP 113/54
[2020-10-06 11:48] VITALS: BP 125/59
[2020-10-06] MEDS: CEFTRIAXONE 1G VIAL IVP SCH (13:50)
[2020-10-06 16:29] VITALS: BP 113/51
[2020-10-06 19:50] VITALS: BP 115/49
[2020-10-06 23:27] VITALS: BP 116/52
[2020-10-07 04:00] VITALS: BP 129/59
[2020-10-07 07:54] VITALS: BP 124/80
[2020-10-07] MEDS: MULTIVITAMIN TABLET PO SCH (11:47)
[2020-10-07] MEDS: PANTOPRAZOLE 40 MG TAB DR PO SCH (11:47)
[2020-10-07 14:29] VITALS: BP 124/76
== END 2020-10-07 17:15 | disposition home or self-care (01) | DRG 432 ==
LOC: EDH 16:58 → EDHIP 19:29 → 3AH 22:38
PROVIDERS: ADMIT Family Medicine; ATTEND Family Medicine
PROC: 30233N1 Transfusion of Nonautologous Red Blood Cells into Peripheral Vein, Percutaneous Approach (ICD-10-PCS; 2020-10-03)
PROC: 06L38CZ Occlusion of Esophageal Vein with Extraluminal Device, Via Natural or Artificial Opening Endoscopic (ICD-10-PCS; principal; 2020-10-04)
DX: K70.30 Alcoholic cirrhosis of liver without ascites (principal); I85.01 Esophageal varices with bleeding; F10.239 Alcohol dependence with withdrawal, unspecified; K76.6 Portal hypertension; N39.0 Urinary tract infection, site not specified; D62 Acute posthemorrhagic anemia; Z91.19 Patient's noncompliance with other medical treatment and regimen; Z93.3 Colostomy status; F12.10 Cannabis abuse, uncomplicated; Z20.822 Contact with and (suspected) exposure to COVID-19; I10 Essential (primary) hypertension; D64.9 Anemia, unspecified; Z80.7 Family history of other malignant neoplasms of lymphoid, hematopoietic and related tissues; Z83.3 Family history of diabetes mellitus; K31.89 Other diseases of stomach and duodenum
CPT/HCPCS: 36415; 43244; 73502; 80053; 80305; 81001; 83605; 83690; 83735; 84100; 84484; 85014; 85018; 85025; 85610; 85730; 86850; 86900; 86901; 86923; 87040; 87077; 87186; 87426; 93005; 97039; A4606; C9113; G0378; J0696; J1170; J2060; J2354; J2543; J2704; J3411; J3475; J3490; J7030; J7050; P9016; U0003

== ENCOUNTER 2020-12-16 20:04 | Inpatient (IN) | payer MEDICARE ==
[~2020-12-16] VITALS: Ht 177.8 cm; Wt 80.7 kg
[~2020-12-16 20:04] MED LIST changes: -LEVO750T46 PO
[2020-12-16] MEDS ORDERED: ACETAMINOPHEN 500 MG TABLET ONE (20:33)
[2020-12-16] MEDS ORDERED: ONDANSETRON 4MG INJ ONE (20:33)
[2020-12-16 20:58] LABS: BASOPHILS % (AUTO) 0.8 % (0.0-5.0); EOSINOPHILS % (AUTO) 0.1 % (0.0-8.0); HEMATOCRIT 31.2 % (36-48); LYMPHOCYTES % (AUTO) 7.3 % (21.0-51.0); MEAN CORPUSCULAR HEMOGLOBIN 24.4 pg (27.0-33.0); MEAN CORPUSCULAR HGB CONC 32.1 g/dL (32.0-36.0); MEAN CORPUSCULAR VOLUME 76.3 fL (79-99); NEUTROPHILS % (AUTO) 84.4 % (40.0-77.0); PLATELET COUNT (AUTO) 63 K/uL (130-400); RED BLOOD CELL COUNT(AUTO) 4.09 MIL/uL (4.00-5.50); WHITE BLOOD COUNT (AUTO) 7.6 K/uL (4.8-10.8)
[2020-12-16 21:11] LABS: INR 1.49 (0.85-1.15); PROTHROMBIN TIME 15.7 SEC (9.6-11.6)
[2020-12-16 21:25] LABS: CREATININE 0.6 mg/dL (0.5-1.5); POTASSIUM 3.6 mmol/L (3.5-5.1)
[2020-12-16 21:29] LABS: ALBUMIN 3.1 g/dL (3.5-5.0); TOTAL PROTEIN, SERUM 6.9 g/dL (6.0-8.3)
[2020-12-16] MEDS ORDERED: ZOSYN 3.375GM+NS 50ML 50 ML IV ONE (21:34)
[2020-12-17] MEDS ORDERED: NITROGLYCERIN 0.4 MG SL TAB SL PRN (00:15)
[2020-12-17] MEDS ORDERED: ONDANSETRON 4MG INJ IV PRN (00:15)
[2020-12-17] MEDS ORDERED: IBUPROFEN 200 MG TAB PO PRN ×2 (00:15)
[2020-12-17] MEDS ORDERED: 0.9%NACL 1000ML 1,000 ML IV ONE (00:15)
[2020-12-17] MEDS ORDERED: PROMETHAZINE HCL 25 MG TABLET PO PRN (00:15)
[2020-12-17] MEDS ORDERED: PHARMACY COMMUNICATION MISC PRN (00:15)
[2020-12-17] MEDS: THIAMINE HCL 100 MG, FOLIC ACID 1 MG, M.V.I. IV [ADULT] 10 ML in 0.9%NACL 1000ML 1,000 ML IV SCH ×2 (00:15→21:04)
[2020-12-17] MEDS: PANTOPRAZOLE 40 MG/VIAL IVP SCH ×2 (00:15→09:00)
[2020-12-17] MEDS ORDERED: LORAZEPAM 2 MG/ML 1 ML VIAL IVP PRN ×2 (00:15)
[2020-12-17 00:38] LABS: MAGNESIUM 1.5 mg/dL (1.80-2.40)
[2020-12-17 00:40] LABS: APPEARANCE,URINE Clear (CLEAR); BILIRUBIN,URINE Small (NEGATIVE); COLOR,URINE Dark Yellow (YELLOW); GLUCOSE, URINE (UA) Negative (NEGATIVE); KETONES,URINE Trace mg/dL (NEGATIVE); LEUKOCYTE ESTERASE ,URINE Small (NEGATIVE); NITRATE,URINE Negative (NEGATIVE); OCCULT BLOOD,URINE Negative (NEGATIVE); PROTEIN,URINE Negative (NEGATIVE)
[2020-12-17 00:50] LABS: AMPHET/METH SCREEN,URINE NEGATIVE (NEGATIVE); BARBITURATE SCREEN, URINE NEGATIVE (NEGATIVE); BENZODIAZEPINES SCREEN,URINE NEGATIVE (NEGATIVE); CANNABINOID SCREEN,URINE POSITIVE (NEGATIVE); COCAINE SCREEN,URINE NEGATIVE (NEGATIVE); OPIATE SCREEN,URINE NEGATIVE (NEGATIVE); PHENCYCLIDINE SCREEN,URINE NEGATIVE (NEGATIVE)
[2020-12-17 00:58] LABS: BACTERIA,URINE Moderate /HPF (None Seen); MUCUS,URINE Few LPF (None Seen); RBC,URINE 0-1 /HPF (0-1); SQUAMOUS EPITHELIAL CELL,UR Few /HPF (0-2)
[2020-12-17] MEDS ORDERED: PANTOPRAZOLE 40 MG/VIAL ONE ×2 (01:13→08:46)
[2020-12-17] MEDS ORDERED: CEFTRIAXONE 1G VIAL ONE (01:14)
[2020-12-17] MEDS ORDERED: MAGNESIUM 2GM PREMIX 50ML 50 ML IV SCH (01:45)
[2020-12-17] MEDS ORDERED: 0.9%NACL 1000ML 2,500 ML IV ONE (01:45)
[2020-12-17] MEDS ORDERED: MAGNESIUM 2GM PREMIX 50ML 50 ML IV ONE (01:51)
[2020-12-17] MEDS ORDERED: LACTULOSE 20 GM/30 ML UDCUP PO PRN (02:30)
[2020-12-17 05:01] LABS: BASOPHILS % (AUTO) 0.2 % (0.0-5.0); EOSINOPHILS % (AUTO) 2.2 % (0.0-8.0); HEMATOCRIT 28.1 % (36-48); LYMPHOCYTES % (AUTO) 7.4 % (21.0-51.0); MEAN CORPUSCULAR HEMOGLOBIN 24.1 pg (27.0-33.0); MEAN CORPUSCULAR VOLUME 75.3 fL (79-99); MONOCYTES % (AUTO) 7.8 % (3.0-13.0); NEUTROPHILS % (AUTO) 81.8 % (40.0-77.0); PLATELET COUNT (AUTO) 31 K/uL (130-400); RED BLOOD CELL COUNT(AUTO) 3.73 MIL/uL (4.00-5.50); RED CELL DISTRIBUTION WIDTH 24.1 % (11.0-15.5); WHITE BLOOD COUNT (AUTO) 8.1 K/uL (4.8-10.8)
[2020-12-17 05:27] LABS: INR 1.54 (0.85-1.15); PROTHROMBIN TIME 16.1 SEC (9.6-11.6)
[2020-12-17 06:12] LABS: ALBUMIN 2.6 g/dL (3.5-5.0); BILIRUBIN,TOTAL 2.8 mg/dL (0.2-1.0); CREATININE 0.5 mg/dL (0.5-1.5); MAGNESIUM 2.1 mg/dL (1.80-2.40); POTASSIUM 3.4 mmol/L (3.5-5.1); TOTAL PROTEIN, SERUM 6.2 g/dL (6.0-8.3)
[2020-12-17] MEDS ORDERED: FOLIC ACID 1 MG TABLET ONE (08:46)
[2020-12-17] MEDS ORDERED: THIAMINE HCL 100 MG/ML 2ML VIAL ONE (08:46)
[2020-12-17] MEDS ORDERED: MULTIVITAMIN TABLET ONE (08:46)
[2020-12-17] MEDS ORDERED: CHLORDIAZEPOXIDE HCL 25 MG CAP ONE (08:59)
[2020-12-17 09:00] VITALS: BP 144/59
[2020-12-17] MEDS: MULTIVITAMIN TABLET PO SCH (09:00)
[2020-12-17] MEDS: FOLIC ACID 1 MG TABLET PO SCH (09:00)
[2020-12-17] MEDS: THIAMINE HCL 100 MG/ML 2ML VIAL IM SCH (09:00)
[2020-12-17] MEDS ORDERED: FAMO20TA8 PO (09:21)
[2020-12-17 12:00] VITALS: BP 143/77
[2020-12-17] MEDS: CEFTRIAXONE 1G VIAL IVP SCH ×3 (13:24→23:16)
[2020-12-17] MEDS: CHLORDIAZEPOXIDE HCL 25 MG CAP PO PRN ×4 (13:24→21:04)
[2020-12-17 17:06] VITALS: BP_SYST 141; BP_SYST 159; BP_DIAS 68; BP_DIAS 76
[2020-12-17 20:36] VITALS: BP 135/69
[2020-12-18] VITALS (7 sets, daily range): BP systolic 139–168; BP diastolic 68–86
[2020-12-18] MEDS ORDERED: POTASSIUM CHLORIDE 20MEQ/100ML 100 ML IV PRN (04:00)
[2020-12-18] MEDS ORDERED: POTASSIUM CHLORIDE 10% ELIXIR 20 MEQ/15 ML UDCUP PO PRN (04:00)
[2020-12-18] MEDS ORDERED: LIDOCAINE HCL-MPF 1% 2ML VIAL IV PRN (04:00)
[2020-12-18 04:39] LABS: BASOPHILS % (AUTO) 0.6 % (0.0-5.0); EOSINOPHILS % (AUTO) 3.3 % (0.0-8.0); HEMATOCRIT 27.8 % (36-48); LYMPHOCYTES % (AUTO) 21.6 % (21.0-51.0); MEAN CORPUSCULAR HEMOGLOBIN 24.3 pg (27.0-33.0); MEAN CORPUSCULAR HGB CONC 31.7 g/dL (32.0-36.0); MEAN CORPUSCULAR VOLUME 76.8 fL (79-99); MONOCYTES % (AUTO) 14.3 % (3.0-13.0); PLATELET COUNT (AUTO) 50 K/uL (130-400); RED BLOOD CELL COUNT(AUTO) 3.62 MIL/uL (4.00-5.50); WHITE BLOOD COUNT (AUTO) 5.2 K/uL (4.8-10.8)
[2020-12-18 04:50] LABS: ALBUMIN 2.4 g/dL (3.5-5.0); CREATININE 0.6 mg/dL (0.5-1.5); POTASSIUM 3.3 mmol/L (3.5-5.1); TOTAL PROTEIN, SERUM 5.6 g/dL (6.0-8.3)
[2020-12-18] MEDS ORDERED: KCL 20 MEQ ERTAB PO ONE (05:14)
[2020-12-18] MEDS: 0.9%NACL 1000ML 1,000 ML IV SCH ×2 (05:16→14:57)
[2020-12-18] MEDS: THIAMINE HCL 100 MG/ML 2ML VIAL IM SCH (08:55)
[2020-12-18] MEDS: FOLIC ACID 1 MG TABLET PO SCH (08:55)
[2020-12-18] MEDS: PANTOPRAZOLE 40 MG/VIAL IVP SCH (08:55)
[2020-12-18] MEDS: MULTIVITAMIN TABLET PO SCH (08:55)
[2020-12-18] MEDS: CEFTRIAXONE 1G VIAL IVP SCH ×2 (12:22→23:32)
[2020-12-18] MEDS: METOPROLOL TARTRATE 25 MG TAB PO SCH ×2 (12:22→20:05)
[2020-12-18] MEDS: KCL 20 MEQ ERTAB PO PRN ×2 (13:30→15:34)
[2020-12-18] MEDS: THIAMINE HCL 100 MG, FOLIC ACID 1 MG, M.V.I. IV [ADULT] 10 ML in 0.9%NACL 1000ML 1,000 ML IV SCH (23:34)
[2020-12-19 04:03] VITALS: BP 146/60
[2020-12-19 04:31] LABS: BASOPHILS % (AUTO) 0.8 % (0.0-5.0); EOSINOPHILS % (AUTO) 8.3 % (0.0-8.0); HEMATOCRIT 30.7 % (36-48); LYMPHOCYTES % (AUTO) 20.3 % (21.0-51.0); MEAN CORPUSCULAR HGB CONC 31.3 g/dL (32.0-36.0); MEAN CORPUSCULAR VOLUME 76.8 fL (79-99); MONOCYTES % (AUTO) 12.2 % (3.0-13.0); PLATELET COUNT (AUTO) 53 K/uL (130-400); RED CELL DISTRIBUTION WIDTH 24.2 % (11.0-15.5); WHITE BLOOD COUNT (AUTO) 5.3 K/uL (4.8-10.8)
[2020-12-19 04:55] LABS: ALBUMIN 2.4 g/dL (3.5-5.0); BILIRUBIN,TOTAL 3.6 mg/dL (0.2-1.0); CREATININE 0.5 mg/dL (0.5-1.5); TOTAL PROTEIN, SERUM 5.8 g/dL (6.0-8.3)
[2020-12-19 08:17] VITALS: BP 167/69
[2020-12-19] MEDS: METOPROLOL TARTRATE 25 MG TAB PO SCH (08:35)
[2020-12-19] MEDS: MULTIVITAMIN TABLET PO SCH ×2 (08:35→08:44)
[2020-12-19] MEDS: FOLIC ACID 1 MG TABLET PO SCH ×2 (08:35→08:44)
[2020-12-19] MEDS: PANTOPRAZOLE 40 MG/VIAL IVP SCH (08:36)
[2020-12-19] MEDS: THIAMINE HCL 100 MG/ML 2ML VIAL IM SCH (08:44)
[2020-12-19] MEDS: 0.9%NACL 1000ML 1,000 ML IV SCH ×2 (10:00)
[2020-12-19 11:47] VITALS: BP 162/72
[2020-12-19] MEDS: CEFTRIAXONE 1G VIAL IVP SCH (12:09)
[2020-12-19 16:32] VITALS: BP 165/69
== END 2020-12-19 17:39 | DRG 871 ==
LOC: EDH 20:04 → EDHIP 23:54 → 4BH 12-17 08:56
PROVIDERS: ADMIT Internal Medicine; ATTEND Internal Medicine
DX: A41.50 Gram-negative sepsis, unspecified (principal); G93.41 Metabolic encephalopathy; R65.21 Severe sepsis with septic shock; N39.0 Urinary tract infection, site not specified; D68.9 Coagulation defect, unspecified; F10.139 Alcohol abuse with withdrawal, unspecified; F10.129 Alcohol abuse with intoxication, unspecified; D69.6 Thrombocytopenia, unspecified; L40.9 Psoriasis, unspecified; K59.00 Constipation, unspecified; Y90.8 Blood alcohol level of 240 mg/100 ml or more; E83.42 Hypomagnesemia; K82.8 Other specified diseases of gallbladder; K70.31 Alcoholic cirrhosis of liver with ascites; F12.10 Cannabis abuse, uncomplicated; E66.9 Obesity, unspecified; D64.9 Anemia, unspecified; R53.81 Other malaise; Z20.822 Contact with and (suspected) exposure to COVID-19; Z80.7 Family history of other malignant neoplasms of lymphoid, hematopoietic and related tissues; Z83.3 Family history of diabetes mellitus; Z80.9 Family history of malignant neoplasm, unspecified; Z79.899 Other long term (current) drug therapy; Z85.05 Personal history of malignant neoplasm of liver; Z68.25 Body mass index [BMI] 25.0-25.9, adult; Z74.01 Bed confinement status
CPT/HCPCS: 36415; 71045; 74176; 80053; 80305; 81001; 82140; 82150; 82550; 83605; 83690; 83735; 83874; 84145; 84484; 85025; 85610; 85730; 87040; 87088; 87426; 87641; 93005; C9113; G0378; J0696; J2405; J2543; J3411; J3475; J3490; J7030; U0003